=== PATIENT | female | born 1955 | race Caucasian/White ===

== ENCOUNTER 2020-05-15 19:56 | Emergency (ER) | payer BC ==
--- NOTE | 2020-05-15 20:43 | ER Document Report ---
ED Medical Screen (RME) - General Chief Complaint: Near Syncope Stated Complaint: DIZZINESS NUMBNESS Time Seen by Provider: 05/15/20 20:38 Primary Care Provider: TRACEE BUTT MD [Primary Care Provider] - Follow up as needed Mode of Arrival: Medic Information source: Patient Notes: 64-year-old female presents to the ED for near syncope. Patient states she was at [employer] working this afternoon when she also became dizzy. She states that she felt electric numbness go to her body that lasted a few seconds and then her vision felt like it was getting dark so she walked to the bathroom and drink some water. She then leaned against the wall and some of the other employees helped her to come up and sit down. She states she has high blood pressure but her pressure was very low in the EMS. I did look at the papers and they were very low. She states she takes medications for high blood pressure cholesterol degenerative disc disease. She has had a hysterectomy and oral surgery. She states she lives along with her dog. Patient did asked to go to the bathroom for a bowel movement. I pushed her chair to the door and then she walked into the bathroom and she was very unsteady to walk to the bathroom and back. I have greeted and performed a rapid initial assessment of this patient. A comprehensive ED assessment and evaluation of the patient, analysis of test results and completion of medical decision making process will be conducted by an additional ED providers. TRAVEL OUTSIDE OF THE [place] IN LAST 30 DAYS: No - Related Data Allergies/Adverse Reactions: No Known Allergies Allergy (Verified 01/02/15 11:49) Physical Exam - Vital signs Vitals: Temp Pulse Resp BP Pulse Ox 97.8 F 88 17 102/57 L 99 05/15/20 20:06 05/15/20 20:06 05/15/20 20:06 05/15/20 20:06 05/15/20 20:06 Course - Vital Signs Vital signs: Temp Pulse Resp BP Pulse Ox 97.8 F 88 17 102/57 L 99 05/15/20 20:06 05/15/20 20:06 05/15/20 20:06 05/15/20 20:06 05/15/20 20:06 Doctor's Discharge - Discharge Referrals: TRACEE BUTT MD [Primary Care Provider] - Follow up as needed
[2020-05-15 21:32] LABS: ABSOLUTE EOSINOPHILS # (AUTO) 0.1 10^3/uL (0.0-0.6); ABSOLUTE LYMPHOCYTES (AUTO) 0.9 10^3/uL (0.5-4.7); ABSOLUTE MONOCYTES (AUTO) 0.4 10^3/uL (0.1-1.4); ABSOLUTE NEUT (AUTO) 13.8 10^3/uL (1.7-8.2); BASOPHILS % (AUTO) 0.2 % (0-2); EOSINOPHILS % (AUTO) 0.4 % (0-6); HEMATOCRIT 32.7 % (36.0-47.0); HEMOGLOBIN 11.1 g/dL (12.0-15.5); LYMPHOCYTES % (AUTO) 5.6 % (13-45); MEAN CORPUSCULAR HEMOGLOBIN 29.4 pg (27.0-33.4); MEAN CORPUSCULAR VOLUME 87 fl (80-97); MONOCYTES % (AUTO) 2.6 % (3-13); PLATELET COUNT 290 10^3/uL (150-450); RED BLOOD COUNT 3.78 10^6/uL (3.72-5.28); RED CELL DISTRIBUTION WIDTH 13.1 % (11.5-14.0); SEGMENTED NEUTROPHILS % (AUTO) 91.2 % (42-78); TOTAL CELLS COUNTED % (AUTO) 100 %; WHITE BLOOD COUNT 15.1 10^3/uL (4.0-10.5)
[2020-05-15 21:51] LABS: ALBUMIN 4.4 g/dL (3.5-5.0); ALKALINE PHOSPHATASE 124 U/L (38-126); ANION GAP 12 (5-19); ASPARTATE AMINO TRANSFERASE 40 U/L (14-36); BILIRUBIN,DIRECT 0.3 mg/dL (0.0-0.4); BILIRUBIN,TOTAL 0.7 mg/dL (0.2-1.3); BLOOD UREA NITROGEN 20 mg/dL (7-20); CALCIUM 10.8 mg/dL (8.4-10.2); CARBON DIOXIDE 27 mmol/L (22-30); CHLORIDE 97 mmol/L (98-107); CREATINE KINASE 257 U/L (30-135); GLUCOSE 93 mg/dL (75-110); POTASSIUM 4.1 mmol/L (3.6-5.0); TOTAL PROTEIN 7.5 g/dL (6.3-8.2)
[2020-05-15 22:18] LABS: CREATINE KINASE MB 2.59 ng/mL (<4.55); TROPONIN I < 0.012 ng/mL
--- NOTE | 2020-05-15 23:48 | EKG REPORT ---
SEVERITY:- ABNORMAL ECG - SINUA RHYTHM NONSPECIFIC REPOL ABNORMALITY, DIFFUSE LEADS : Confirmed by: Gisele Duque MD 15-May-2020 23:48:11
[2020-05-16] MEDS ORDERED: NORMAL SALINE 1000 ML 1,000 ML IV ONE (02:50)
--- NOTE | 2020-05-16 03:13 | ER Document Report ---
ED Syncope and Near Syncope - General Chief Complaint: Near Syncope Stated Complaint: DIZZINESS NUMBNESS Time Seen by Provider: 05/15/20 20:38 Primary Care Provider: TRACEE BUTT MD [Primary Care Provider] - Follow up as needed Mode of Arrival: Medic TRAVEL OUTSIDE OF THE [place] IN LAST 30 DAYS: No - HPI Notes: Patient is a 64-year-old female with a past medical history of hypertension and high cholesterol who presents with near syncope. Patient states that she was working at [employer] and became lightheaded and felt numbness throughout her whole body. Patient states she went to the bathroom and was lightheaded and had some darkening of her vision. She leaned against the wall and then the paramedics came. Denies any headaches. No chest pain or shortness of breath. No recent illnesses. No urinary symptoms. No diarrhea or constipation. No nausea or vomiting. She states she recently changed shifts at work. She has been running around a lot at home before going to work and she has not been drinking enough water. Patient denies syncope or hitting her head during this episode. - Related Data Allergies/Adverse Reactions: No Known Allergies Allergy (Verified 01/02/15 11:49) Past Medical History - General Information source: Patient - Social History Smoking Status: Unknown if Ever Smoked Family History: Reviewed & Not Pertinent Review of Systems - Review of Systems Notes: CONSTITUTIONAL: No fever, fatigue or weight loss. SKIN: No rash. HENT: No congestion, ear pain, or sore throat. EYES: No eye pain. CARDIOVASCULAR: No chest pain or edema. RESPIRATORY: No cough, shortness of breath, congestion, or wheezing. GASTROINTESTINAL: No abdominal pain, nausea, vomiting, bloody stools or diarrhea. GENITOURINARY: No dysuria. MUSCULOSKELETAL: No joint pain or swelling. NEUROLOGIC: No seizures. No headache, focal weakness or sensory changes. Positive for lightheadedness and near syncope. HEMATOLOGIC: No unusual bruising or bleeding. PSYCHIATRIC: No depression or anxiety. Physical Exam - Vital signs Vitals: Temp Pulse Resp BP Pulse Ox 97.8 F 88 17 102/57 L 99 05/15/20 20:06 05/15/20 20:06 05/15/20 20:06 05/15/20 20:06 05/15/20 20:06 - General General appearance: Appears well Notes: VITAL SIGNS: Mild hypotension. GENERAL: No acute distress, non-toxic appearance. HEAD: Normal with no signs of head trauma. EYES: EOMI, conjunctiva normal, no discharge. EARS: Hearing grossly intact. NOSE: Normal. NECK: Normal range of motion, no tenderness, supple, no lymphadenopathy, No adenopathy, no JVD. CHEST: Clear breath sounds bilaterally. No wheezes, rales, or rhonchi. CARDIAC: Regular rate and rhythm. S1 and S2, without murmurs, gallops, or rubs. VASCULAR: No Edema. ABDOMEN: Normal and soft with no tenderness, no masses or pulsatile masses. GENITOURINARY: Normal, No tenderness LYMPATHTIC: No lymphadenopathy noted. MUSCULOSKELETAL: Good range of motion of all major joints. Extremities without clubbing, cyanosis or edema. NEUROLOGICAL: Alert and oriented x 3. No focal sensory or strength deficits. Speech normal. Follows commands appropriately. PSYCHIATRIC: Normal Affect, judgement and mood. SKIN: Normal appearance with no rashes or lesions. Course - Re-evaluation Re-evalutation: 05/16/20 05:35 Patient states she feels much better after fluids. Her urinalysis shows possible UTI. She states she has had some dysuria also. I will treat with Rocephin and discharge with Keflex. Patient's orthostatics were normal. Her repeat EKG and troponin are also normal. I suspect patient became dehydrated as she states she has not been drinking enough water. Was instructed to follow-up with her PCP. She was given strict return precautions. Patient is very agreeable to the plan. - Vital Signs Vital signs: Temp Pulse Resp BP Pulse Ox 97.8 F 67 17 123/72 100 05/16/20 00:00 05/16/20 04:57 05/15/20 20:06 05/16/20 04:57 05/16/20 00:00 - Laboratory Result Diagrams: 05/15/20 20:50 05/15/20 20:50 Laboratory results interpreted by me: 05/15/20 05/15/20 05/16/20 20:50 20:50 02:54 WBC 15.1 H Hgb 11.1 L Hct 32.7 L Lymph % (Auto) 5.6 L [place] % (Auto) 2.6 L Absolute Neuts (auto) 13.8 H Seg Neutrophils % 91.2 H Sodium 135.8 L Chloride 97 L Est GFR (MDRD) Non-Af 56 L Calcium 10.8 H AST 40 H Creatine Kinase 257 H Urine Ketones TRACE H Urine Bilirubin SMALL H Urine Urobilinogen 2.0 H Ur Leukocyte Esterase SMALL H Urine Ascorbic Acid 20 H - Diagnostic Test Radiology reviewed: Image reviewed, Reports reviewed - EKG Interpretation by Me EKG shows normal: Sinus rhythm Rate: Normal Rhythm: NSR Additional EKG results interpreted by me: 05/16/20 03:19 Sinus rhythm at a rate of 79. QTc 482. Significant artifact present. No previous EKG available for comparison. 05/16/20 05:10 Repeat EKG shows sinus rhythm at a rate of 81. QTC 432. No acute ST changes. Discharge - Discharge Clinical Impression: Near syncope Urinary tract infection Qualifiers: Urinary tract infection type: site unspecified Hematuria presence: without hematuria Qualified Code(s): N39.0 - Urinary tract infection, site not specified Condition: Stable Disposition: HOME, SELF-CARE Instructions: Urinary Tract Infection, Child ([facility]), Near Syncopal Episode ([facility]) Additional Instructions: Your work-up today is reassuring. Please make sure you are staying hydrated. Please follow-up with your family doctor. Return to the ER for any return of symptoms. Prescriptions: Cephalexin Monohydrate [Keflex 500 mg Capsule] 500 mg PO BID 7 Days #14 capsule Forms: Return to Work Referrals: TRACEE BUTT MD [Primary Care Provider] - Follow up in 3-5 days
[2020-05-16 03:17] LABS: APPEARANCE,URINE SLIGHTLY-CLOUDY; BILIRUBIN,URINE SMALL (NEGATIVE); COLOR,URINE AMBER; GLUCOSE, URINE NEGATIVE (NEGATIVE); KETONES,URINE TRACE mg/dL (NEGATIVE); LEUKOCYTE ESTERASE,URINE SMALL (NEGATIVE); NITRITE,URINE NEGATIVE (NEGATIVE); PROTEIN,URINE NEGATIVE (NEGATIVE)
[2020-05-16] MEDS ORDERED: CEFTRIAXONE 1 GM/D5W RTU 1 GM/50 ML RTUPB IV ONE (03:27)
--- NOTE | 2020-05-16 04:07 | RADIOLOGY REPORT (SQ) ---
EXAM: XR Chest, 1 View EXAM DATE/TIME: 05/16/2020 3:45 AM CLINICAL HISTORY: The patient is 64 years old and is Female; near syncope TECHNIQUE: Frontal view of the chest. COMPARISON: No relevant prior studies available. FINDINGS: LUNGS: Unremarkable. No consolidation. PLEURAL SPACE: Unremarkable. No pneumothorax. HEART: No significant enlargement of the cardiac silhouette. MEDIASTINUM: Unremarkable. BONES/JOINTS: No acute osseous findings. IMPRESSION: No acute findings visualized in the chest.
[2020-05-16 04:58] VITALS: BP 123/72
--- NOTE | 2020-05-16 10:06 | EKG REPORT ---
SEVERITY:- BORDERLINE ECG - SINUS RHYTHM BORDERLINE PROLONGED QT INTERVAL : Confirmed by: Gisele Duque MD 16-May-2020 10:05:52
== END 2020-05-16 05:30 | disposition home or self-care (01) ==
LOC: ER 19:56
DX: R55 Syncope and collapse (principal); N39.0 Urinary tract infection, site not specified; I10 Essential (primary) hypertension; I95.9 Hypotension, unspecified; R42 Dizziness and giddiness
CPT/HCPCS: 93005 ×2; 99285; 96361; 96365; 36415; 82553; 82962; 82550; 85025; 80053; 81001; 84484; 71045; 93010 ×2; J7030; J0696